=== PATIENT | male | born 1955 | race Caucasian/White ===

== ENCOUNTER 2018-02-14 05:35 | Inpatient (IN) ==
[~2018-02-14 05:35] MED LIST: ACETAMINOPHEN 500 MG TABLET PO ONE; ALBUTEROL/IPRATROPIUM 3 ML NEB RESP TX ONE; ALVIMOPAN 12 MG CAPSULE PO ONE; DIAZEPAM 5 MG TABLET PO ONE; FAMOTIDINE 20 MG TABLET PO ONE; GABAPENTIN 400 MG CAPSULE PO ONE; cefTRIAXone 1,000 MG in SYRINGE 1 EACH IV ONE
[2018-02-14] MEDS ORDERED: ALVIMOPAN 12 MG CAPSULE PO ONE (06:00)
[2018-02-14] MEDS ORDERED: cefTRIAXone 1,000 MG in SYRINGE 1 EACH IV ONE (06:00)
[2018-02-14] MEDS ORDERED: DIAZEPAM 5 MG TABLET PO ONE (06:25)
[2018-02-14] MEDS ORDERED: ALBUTEROL/IPRATROPIUM 3 ML NEB RESP TX ONE (06:25)
[2018-02-14] MEDS ORDERED: FAMOTIDINE 20 MG TABLET PO ONE (06:25)
[2018-02-14] MEDS ORDERED: cefTRIAXone 1,000 MG VIAL ONE (06:28)
[2018-02-14] MEDS ORDERED: ALVIMOPAN 12 MG CAPSULE ONE (06:28)
[2018-02-14] MEDS ORDERED: LACTATED RINGERS 1,000 ML IV SCH (06:30)
[2018-02-14] MEDS ORDERED: MANNITOL 12.5 GM/50 ML VIAL IV ONE (06:41)
[2018-02-14 11:43] LABS: Apearance,Urine CLEAR (Clear); Bilirubin,Urine Negative (Negative); Blood, Urine Negative (Negative); Glucose,Urine (UA) Negative (Negative); Ketones,Urine Negative (Negative); Mucus,Urine Occasional /LPF (Occasional); Nitrite,Urine Negative (Negative); Protein,Urine Negative; RBC,Urine 2 /HPF (0-4); Squamous Epithelial Cell,Urine Occasional /HPF (0-10); Urine Color Yellow (Yellow); Urine Specific Gravity 1.015 (1.001-1.035); Urine Urobilinogen < 2.0 EU/DL (0.2-1.0)
[2018-02-14] MEDS ORDERED: PROPOFOL 200 MG/20 ML VIAL IV ONE (11:43)
[2018-02-14] MEDS ORDERED: MIDAZOLAM 2 MG/2 ML VIAL ONE (11:43)
[2018-02-14] MEDS ORDERED: SEVOFLURANE 1 UNIT/15 MINUTE INH ONE (11:43)
[2018-02-14] MEDS ORDERED: fentaNYL 100 MCG/2 ML VIAL ONE (11:44)
[2018-02-14] MEDS ORDERED: DEXAMETHASONE 10 MG/1 ML VIAL ONE (11:44)
[2018-02-14] MEDS ORDERED: ePHEDrine 50 MG/ML AMP ONE (11:44)
[2018-02-14] MEDS ORDERED: methylPREDNISolone SOD SUC 125 MG/2 ML VIAL ONE (11:44)
[2018-02-14] MEDS ORDERED: ONDANSETRON 4 MG/2 ML VIAL ONE (11:44)
[2018-02-14] MEDS ORDERED: GLYCOPYRROLATE 0.4 MG/2 ML VIAL ONE (11:45)
[2018-02-14] MEDS ORDERED: ROCURONIUM 100 MG/10 ML VIAL IV ONE (11:45)
[2018-02-14] MEDS ORDERED: NEOSTIGMINE 10 MG/10 ML VIAL ONE (11:45)
[2018-02-14] MEDS ORDERED: LACTATED RINGERS 2,000 ML IV ONE (11:45)
[2018-02-14] MEDS ORDERED: ONDANSETRON 4 MG/2 ML VIAL IV PRN (11:56)
[2018-02-14] MEDS: HYDROmorphone 2 MG/1 ML VIAL IV PRN ×4 (12:00→12:16)
[2018-02-14] MEDS ORDERED: MEPERIDINE 25 MG/1 ML VIAL ONE (12:12)
[2018-02-14] MEDS ORDERED: MEPERIDINE 25 MG/1 ML VIAL IV PRN (12:13)
[2018-02-14] MEDS ORDERED: NALOXONE 0.4 MG/ML VIAL IV PRN (13:01)
[2018-02-14] MEDS: MORPHINE PCA 30 MG/30 ML SYRINGE IV SCH (13:28)
[2018-02-14] MEDS: SODIUM CHLORIDE 0.9% 1,000 ML IV SCH (13:28)
[2018-02-14] MEDS ORDERED: ALBUTEROL 1.25 MG/3 ML NEB RESP TX PRN (17:16)
[2018-02-14] MEDS: ALVIMOPAN 12 MG CAPSULE PO SCH (20:49)
[2018-02-15] MEDS: SODIUM CHLORIDE 0.9% 1,000 ML IV SCH (02:43)
[2018-02-15] MEDS: SIMETHICONE CHEW 80 MG TABLET PO PRN ×3 (03:09→16:27)
[2018-02-15] MEDS: MORPHINE PCA 30 MG/30 ML SYRINGE IV SCH (03:15)
[2018-02-15 06:00] LABS: Basophils % 0.2 % (0.0-0.8); Hematocrit 37.9 VOL% (42.0-52.0); Hemoglobin 12.5 GM/DL (14.0-18.0); Immature Granulocytes % 0.6 %; Immature Granulocytes Absolute 0.12 #; Lymphocytes # 1.1 10*3/uL (1.4-4.0); Lymphocytes % 5.5 % (21.2-54.2); Mean Corpuscular Hemoglobin 30 PG (27-34); Mean Platelet Volume 11.3 FL (9.6-12.0); Monocytes # 2.2 10*3/uL (0.11-0.8); Neutrophils # 16.5 10*3/uL (1.4-7.4); Neutrophils % 82.7 % (38.7-73.9); Platelet Count 218 T/CUMM (130-400); Red Blood Count 4.21 MC/CUMM (3.8-5.5); Red Cell Distribution Width 12.8 % (9.3-17.3); White Blood Count 19.9 T/CUMM (4-12)
[2018-02-15 06:19] LABS: Calcium 7.7 MG/DL (8.5-10.1); Osmolality,Calculated 278.5 MOS/KG (273-304); Potassium 3.6 MMOL/L (3.5-5.1)
[2018-02-15] MEDS: ALVIMOPAN 12 MG CAPSULE PO SCH ×2 (09:19→21:06)
[2018-02-15] MEDS ORDERED: oxyCODONE/ACETAMINOPHEN 5-325 MG TABLET PO PRN (15:35)
[2018-02-15] MEDS: oxyCODONE/ACETAMINOPHEN 5-325 MG TABLET PO PRN ×2 (16:27→21:06)
[2018-02-15] MEDS ORDERED: NON-FORMULARY MEDICATION (Fexofenadine/Pseudoeph 60-120 1 TABLET) PO PRN (18:39)
[2018-02-15] MEDS ORDERED: ALBUTEROL 2.5 MG/3 ML NEB RESP TX PRN (18:39)
[2018-02-15] MEDS ORDERED: BISACODYL 10 MG SUPP RECTAL ONE (20:09)
[2018-02-16] MEDS: oxyCODONE/ACETAMINOPHEN 5-325 MG TABLET PO PRN (07:10)
[2018-02-16] MEDS ORDERED: ONDANSETRON 4 MG/2 ML VIAL IV PRN (08:41)
[2018-02-16] MEDS ORDERED: MORPHINE 4 MG/1 ML VIAL IV PRN (08:42)
[2018-02-16] MEDS ORDERED: NON-FORMULARY MEDICATION (Fluticasone/Vilanterol [Breo Ellipta 100-25 Mcg Inh] 1 PUFF) INH SCH (09:00)
[2018-02-16] MEDS ORDERED: amLODIPine 5 MG TABLET PO SCH (09:00)
[2018-02-16] MEDS ORDERED: ROSUVASTATIN 10 MG TABLET PO SCH (09:00)
[2018-02-16] MEDS ORDERED: PANTOPRAZOLE 40 MG TABLET PO SCH (09:00)
[2018-02-16] MEDS: ALVIMOPAN 12 MG CAPSULE PO SCH (11:08)
[2018-02-16 12:10] VITALS: BP 137/62
== END 2018-02-16 13:20 | disposition home or self-care (01) | DRG 658 ==
LOC: N.OR 05:35 → N.SDSINP 05:43 → N.5E 12:53
PROVIDERS: ADMIT Urology; ATTEND Urology